=== PATIENT | female | born 1945 | race Two or more races ===

== ENCOUNTER 2018-12-24 08:45 | Outpatient (CLI) | payer OTHER | END 2018-12-24 12:31 | disposition home or self-care (01) | LOC: LAB 08:45 | DX: D12.3 Benign neoplasm of transverse colon (principal); Z86.010 Personal history of colon polyps; K92.1 Melena ==

== ENCOUNTER 2018-12-26 08:00 | Inpatient (IN) | payer OTHER ==
[~2018-12-26] VITALS: Ht 157.5 cm; Wt 63.5 kg
[2018-12-26] MEDS ORDERED: CRESTOR10 MG PO (10:49)
[2018-12-26] MEDS ORDERED: ATACAND16 MG PO (10:49)
[2018-12-26] MEDS ORDERED: HYDROCHLOROTH12.5 M1 PO (10:50)
== END 2019-01-05 14:50 | disposition home or self-care (01) | DRG 331 ==
LOC: EDSTATUS 08:00 → ADM 08:00 → SURG 01-01 07:00 → SURH 01-01 09:00 → O/R 01-01 09:00 → SURH 01-01 16:45
PROVIDERS: ADMIT Colon & Rectal Surgery
PROC: 07TB4ZZ Resection of Mesenteric Lymphatic, Percutaneous Endoscopic Approach (ICD-10-PCS; 2019-01-01)
PROC: 0DTU4ZZ Resection of Omentum, Percutaneous Endoscopic Approach (ICD-10-PCS; 2019-01-01)
PROC: 0DTF4ZZ Resection of Right Large Intestine, Percutaneous Endoscopic Approach (ICD-10-PCS; principal; 2019-01-01 07:00)
DX: D12.3 Benign neoplasm of transverse colon (principal); Z86.010 Personal history of colon polyps; I10 Essential (primary) hypertension

== ENCOUNTER → 2019-01-29 | Emergency (ER) | payer OTHER ==
[~2019-01-29] VITALS: Ht 157.5 cm; Wt 66.2 kg
[~2019-01-29] MED LIST: ATACAND16 MG PO; CRESTOR10 MG PO; HYDROCHLOROTH12.5 M1 PO
== END | disposition home or self-care (01) ==
LOC: ER 14:22
DX: K58.8 Other irritable bowel syndrome (principal); R10.84 Generalized abdominal pain

== ENCOUNTER 2020-04-03 07:15 | Day surgery (SDC) | payer OTHER | END 2020-04-03 12:45 | disposition home or self-care (01) | LOC: AMB-ENDOS 07:15 → ADM 14:15 → AMB-ENDOS 14:15 | PROVIDERS: ATTEND Colon & Rectal Surgery | DX: K62.89 Other specified diseases of anus and rectum (principal); K64.1 Second degree hemorrhoids; Z20.828 Contact with and (suspected) exposure to other viral communicable diseases ==

== ENCOUNTER 2023-03-02 09:43 | Emergency (ER) | payer OTHER ==
[~2023-03-02] VITALS: Ht 154.9 cm; Wt 65.8 kg
[2023-03-02] MEDS ORDERED: PAXLOVID 300-11 EACH PO (12:24)
== END 2023-03-02 13:37 | disposition home or self-care (01) ==
LOC: ER 09:43
DX: U07.1 COVID-19 (principal); I10 Essential (primary) hypertension; Z91.040 Latex allergy status